=== PATIENT | male | born 1950 | race African-American/Black ===

== ENCOUNTER 2021-04-08 06:27 | Emergency (ER) | payer MEDICARE, OTHER ==
[~2021-04-08] VITALS: Ht 182.9 cm; Wt 110.0 kg
[2021-04-08 08:09] LABS: HEMATOCRIT. 39.7 % (42.0-52.0); HEMOGLOBIN. 13.2 g/dL (14.0-18.0); MEAN CORPUSCULAR HEMOGLOBIN 28.2 pg (28.0-32.0); MEAN CORPUSCULAR VOLUME 84.7 fL (80.0-94.0); MEAN PLATELET VOLUME 6.4 fl (7.4-10.4); PLATELET 362 x1000/uL (130-400); RED BLOOD CELL COUNT 4.69 mill/uL (4.7-6.1); RED CELL DISTRIBUTION WIDTH 14.7 % (11.6-14.6)
[2021-04-08 08:16] LABS: CHLORIDE 105 mEq/L (98-107)
[2021-04-08 08:42] LABS: PLATELET ESTIMATE NORMAL
[2021-04-08 11:22] LABS: CLARITY URINE CLEAR (CLEAR); COLOR URINE YELLOW (YELLOW); KETONES URINE NEGATIVE (NEGATIVE); LEUKOCYTE ESTERASE URINE NEGATIVE (NEGATIVE); NITRITE URINE NEGATIVE (NEGATIVE); OCCULT BLOOD URINE NEGATIVE (NEGATIVE); PH URINE 6.5 (4.5-8.0); PROTEIN URINE NEGATIVE (NEGATIVE); SPECIFIC GRAVITY URINE 1.009 (1.005-1.030); UROBILINOGEN URINE 0.2 E.U./dL (0.2-1.0)
[2021-04-08] MEDS ORDERED: CLONIDINE 0.1MG TABLET PO PRN (12:45)
[2021-04-08] MEDS ORDERED: GUAIFENESIN 200MG/10ML SUGAR FREE UDC PO PRN (12:45)
[2021-04-08] MEDS ORDERED: DOCUSATE SODIUM 100MG CAPSULE PO PRN (12:45)
[2021-04-08] MEDS ORDERED: IPRATROPIUM/ALBUTEROL 0.5-3(2.5)MG/3ML NEB NEB PRN (12:45)
[2021-04-08] MEDS ORDERED: ACETAMINOPHEN 325MG TABLET PO PRN (12:45)
[2021-04-08] MEDS ORDERED: ONDANSETRON HCL 4MG/2ML INJ IV PRN (12:45)
[2021-04-08] MEDS ORDERED: HYDRALAZINE 20MG/ML VIAL IV PRN (12:45)
[2021-04-08] MEDS ORDERED: ENOXAPARIN 30MG/0.3ML SYR SUBCUT SCH (13:00)
[2021-04-08 13:40] VITALS: BP 170/101
== END 2021-04-08 14:04 | disposition left against medical advice (07) ==
LOC: ER 06:27 → CANRESERV 12:13 → ENRESERV 12:13 → CANBEDREQ 13:51 → ER 14:04
DX: R55 Syncope and collapse (principal); Z20.822 Contact with and (suspected) exposure to COVID-19
CPT/HCPCS: 36415; 70450; 71045; 80053; 81003; 83880; 84484; 85025; 87426; 93005; 96374; 96375; 99285; J0360; J2405

== ENCOUNTER 2021-12-06 11:16 | Inpatient (IN) | payer MEDICARE, OTHER ==
[~2021-12-06] VITALS: Ht 177.8 cm; Wt 92.6 kg
[2021-12-06] MEDS ORDERED: SODIUM CHLORIDE 0.9% 1,000 ML IV ONE (12:30)
[2021-12-06 12:52] LABS: BASOPHILS % 0.4 % (0.0-2.0); CHLORIDE 105 mEq/L (98-107); EOSINOPHILS % 1.9 % (0.0-5.0); HEMATOCRIT. 38.3 % (42.0-52.0); LYMPHOCYTES % 8.8 % (20.0-50.0); MEAN CORPUSCULAR HEMOGLOBIN 29.4 pg (28.0-32.0); MEAN CORPUSCULAR VOLUME 86.8 fL (80.0-94.0); MEAN PLATELET VOLUME 6.5 fl (7.4-10.4); MONOCYTES % 8.3 % (2.0-8.0); NEUTROPHILS % 80.6 % (40.0-76.0); PLATELET 375 x1000/uL (130-400); RED BLOOD CELL COUNT 4.41 mill/uL (4.7-6.1); RED CELL DISTRIBUTION WIDTH 13.7 % (11.6-14.6)
[2021-12-06] MEDS ORDERED: ASPIRIN 325MG EC TABLET PO ONE (14:45)
[2021-12-06] MEDS ORDERED: ONDANSETRON HCL 4MG/2ML INJ IV PRN (17:00)
[2021-12-06] MEDS ORDERED: ACETAMINOPHEN 325MG TABLET PO PRN (17:00)
[2021-12-06] MEDS: LOSARTAN POTASSIUM 100 MG TABLET PO SCH (17:05)
[2021-12-06 17:07] VITALS: BP 200/115
[2021-12-06 17:10] VITALS: BP 200/115
[2021-12-06 20:00] VITALS: BP 174/107
[2021-12-06] MEDS ORDERED: PNEUMOCOCCAL 23-VAL P-SAC VAC 0.5 ML IM ONE (21:30)
[2021-12-06] MEDS ORDERED: INFLUENZA VACCINE 05/PF 0.5 ML SYRINGE IM ONE (21:30)
[2021-12-06] MEDS: CLONIDINE 0.1MG TABLET PO PRN (23:23)
[2021-12-07] VITALS: BP 130/98
[2021-12-07 04:00] VITALS: BP_SYST 177
[2021-12-07] MEDS: CLONIDINE 0.1MG TABLET PO PRN ×3 (06:16→19:06)
[2021-12-07 08:00] VITALS: BP 163/93
[2021-12-07] MEDS: LOSARTAN POTASSIUM 100 MG TABLET PO SCH (08:58)
[2021-12-07 12:00] VITALS: BP_SYST 163; BP_SYST 164; BP_SYST 167; BP_DIAS 100; BP_DIAS 98; BP_DIAS 99
[2021-12-07] MEDS: AMLODIPINE 10MG TABLET PO SCH (14:37)
[2021-12-07 16:00] VITALS: BP 166/92
[2021-12-07 16:50] LABS: BASOPHILS % 0.3 % (0.0-2.0); EOSINOPHILS % 4.6 % (0.0-5.0); HEMATOCRIT. 36.6 % (42.0-52.0); HEMOGLOBIN. 12.5 g/dL (14.0-18.0); LYMPHOCYTES % 17.7 % (20.0-50.0); MEAN CORPUSCULAR HEMOGLOBIN 29.4 pg (28.0-32.0); MEAN CORPUSCULAR VOLUME 86.5 fL (80.0-94.0); MEAN PLATELET VOLUME 6.7 fl (7.4-10.4); NEUTROPHILS % 67.4 % (40.0-76.0); PLATELET 357 x1000/uL (130-400); RED BLOOD CELL COUNT 4.24 mill/uL (4.7-6.1); RED CELL DISTRIBUTION WIDTH 14.1 % (11.6-14.6)
[2021-12-07 16:57] LABS: CHLORIDE 100 mEq/L (98-107)
[2021-12-07 17:13] LABS: VITAMIN B12 SERUM 415 pg/mL (211-911)
[2021-12-07] MEDS: ASPIRIN 81MG TABLET PO SCH (19:06)
[2021-12-07 20:00] VITALS: BP_SYST 123; BP_SYST 130; BP_SYST 131; BP_DIAS 82; BP_DIAS 84; BP_DIAS 86
[2021-12-07] MEDS ORDERED: ATORVASTATIN CALCIUM 20MG TABLET PO SCH (21:00)
[2021-12-07] MEDS: ENOXAPARIN 40MG/0.4ML SYR SUBCUT SCH (21:40)
[2021-12-07] MEDS ORDERED: INSULIN GLARGINE 100 UNITS/ML SUBCUT SCH (22:00)
[2021-12-07 22:36] LABS: CLARITY URINE CLEAR (CLEAR); COLOR URINE YELLOW (YELLOW); KETONES URINE NEGATIVE (NEGATIVE); LEUKOCYTE ESTERASE URINE NEGATIVE (NEGATIVE); NITRITE URINE NEGATIVE (NEGATIVE); OCCULT BLOOD URINE NEGATIVE (NEGATIVE); PH URINE 7.5 (4.5-8.0); PROTEIN URINE NEGATIVE (NEGATIVE); SPECIFIC GRAVITY URINE 1.016 (1.005-1.030); UROBILINOGEN URINE 0.2 E.U./dL (0.2-1.0)
[2021-12-07] MEDS ORDERED: DEXTROSE 50% WATER 50ML SYRINGE IV PRN (22:45)
[2021-12-07] MEDS: BLOOD SUGAR DIAGNOSTIC STRIP TEST SCH (22:58)
[2021-12-07] MEDS: INSULIN GLARGINE 100 UNITS/ML SUBCUT SCH (23:05)
[2021-12-07] MEDS: INSULIN LISPRO 100 UNITS/ML SUBCUT SCH (23:05)
[2021-12-08] VITALS: BP 100/54
[2021-12-08 04:00] VITALS: BP 160/91
[2021-12-08] MEDS: BLOOD SUGAR DIAGNOSTIC STRIP TEST SCH ×4 (06:26→21:23)
[2021-12-08] MEDS: CLONIDINE 0.1MG TABLET PO PRN (06:32)
[2021-12-08 08:00] VITALS: BP 159/91
[2021-12-08] MEDS: ASPIRIN 81MG TABLET PO SCH (08:58)
[2021-12-08] MEDS: LOSARTAN POTASSIUM 100 MG TABLET PO SCH (08:58)
[2021-12-08] MEDS: CLOPIDOGREL 75MG TABLET PO SCH (08:58)
[2021-12-08] MEDS: AMLODIPINE 10MG TABLET PO SCH (08:59)
[2021-12-08] MEDS ORDERED: ASPIRIN 81MG TABLET PO SCH (09:00)
[2021-12-08] MEDS: INSULIN LISPRO 100 UNITS/ML SUBCUT SCH ×4 (09:22→21:00)
[2021-12-08] MEDS: INSULIN GLARGINE 100 UNITS/ML SUBCUT SCH ×2 (11:44→21:26)
[2021-12-08 12:00] VITALS: BP 158/86
[2021-12-08 16:00] VITALS: BP_SYST 151; BP_SYST 155; BP_SYST 158; BP_DIAS 88; BP_DIAS 91; BP_DIAS 92
[2021-12-08 20:00] VITALS: BP 152/89
[2021-12-08] MEDS: ENOXAPARIN 40MG/0.4ML SYR SUBCUT SCH (21:23)
[2021-12-08] MEDS: ATORVASTATIN CALCIUM 20MG TABLET PO SCH (21:24)
[2021-12-09] VITALS: BP 164/85
[2021-12-09] MEDS: CLONIDINE 0.1MG TABLET PO PRN (00:30)
[2021-12-09 04:11] VITALS: BP_SYST 152; BP_SYST 154; BP_SYST 165; BP_DIAS 83; BP_DIAS 86; BP_DIAS 89
[2021-12-09] MEDS: BLOOD SUGAR DIAGNOSTIC STRIP TEST SCH ×4 (06:47→21:16)
[2021-12-09] MEDS: INSULIN LISPRO 100 UNITS/ML SUBCUT SCH ×4 (07:50→21:00)
[2021-12-09 08:00] VITALS: BP_SYST 152; BP_SYST 155; BP_SYST 158; BP_DIAS 83; BP_DIAS 84; BP_DIAS 85
[2021-12-09] MEDS: AMLODIPINE 10MG TABLET PO SCH (09:43)
[2021-12-09] MEDS: ASPIRIN 81MG TABLET PO SCH (09:43)
[2021-12-09] MEDS: INSULIN GLARGINE 100 UNITS/ML SUBCUT SCH ×2 (09:50→21:49)
[2021-12-09] MEDS: CLOPIDOGREL 75MG TABLET PO SCH (10:06)
[2021-12-09] MEDS: LOSARTAN POTASSIUM 100 MG TABLET PO SCH (10:06)
[2021-12-09 12:00] VITALS: BP 145/87
[2021-12-09 16:00] VITALS: BP 161/82
[2021-12-09 20:00] VITALS: BP 159/89
[2021-12-09] MEDS: ATORVASTATIN CALCIUM 20MG TABLET PO SCH (21:06)
[2021-12-09] MEDS: ENOXAPARIN 40MG/0.4ML SYR SUBCUT SCH (21:13)
[2021-12-10] VITALS: BP 159/89
[2021-12-10 04:00] VITALS: BP 154/89
[2021-12-10] MEDS: BLOOD SUGAR DIAGNOSTIC STRIP TEST SCH ×3 (07:42→17:20)
[2021-12-10] MEDS: INSULIN LISPRO 100 UNITS/ML SUBCUT SCH ×3 (07:42→18:49)
[2021-12-10 08:00] VITALS: BP 179/84
[2021-12-10] MEDS: ASPIRIN 81MG TABLET PO SCH (09:41)
[2021-12-10] MEDS: AMLODIPINE 10MG TABLET PO SCH (09:41)
[2021-12-10] MEDS: CLOPIDOGREL 75MG TABLET PO SCH (09:41)
[2021-12-10] MEDS: LOSARTAN POTASSIUM 100 MG TABLET PO SCH (09:41)
[2021-12-10] MEDS: INSULIN GLARGINE 100 UNITS/ML SUBCUT SCH (09:42)
[2021-12-10 12:00] VITALS: BP 175/99
[2021-12-10] MEDS: CLONIDINE 0.1MG TABLET PO PRN (13:00)
[2021-12-10 16:00] VITALS: BP 129/87
[2021-12-10 18:23] VITALS: BP 129/87
== END 2021-12-10 18:55 | DRG 65 ==
LOC: ER 13:02 → 6WST 14:44 → EDBEDREQ 15:02 → ENRESERV 15:12 → 6WST 12-09 01:05
PROVIDERS: ADMIT Internal Medicine; ATTEND Internal Medicine
PROC: 4A00X4Z Measurement of Central Nervous Electrical Activity, External Approach (ICD-10-PCS; principal; 2021-12-08)
DX: I63.81 Other cerebral infarction due to occlusion or stenosis of small artery (principal); E44.1 Mild protein-calorie malnutrition; I16.1 Hypertensive emergency; E11.65 Type 2 diabetes mellitus with hyperglycemia; I10 Essential (primary) hypertension; Z68.29 Body mass index [BMI] 29.0-29.9, adult; R61 Generalized hyperhidrosis
CPT/HCPCS: 36415; 70551; 71045; 80048; 80053; 80061; 81003; 82607; 82962; 83036; 83735; 83880; 84443; 84484; 85025; 90686; 90732; 93306; 93880; 95816; 97116; 97162; 97166; 97530; 99285; J1650; J1815; J2405; J7030

== ENCOUNTER 2021-12-22 00:20 | Inpatient (IN) | payer MEDICARE, OTHER ==
[~2021-12-22] VITALS: Ht 177.8 cm; Wt 99.8 kg
[2021-12-22] VITALS (7 sets, daily range): BP systolic 150–159; BP diastolic 74–91
[2021-12-22] MEDS ORDERED: DEXT 5%/0.45% NACL KCL 20MEQ/L 1,000 ML IV SCH (04:00)
[2021-12-22] MEDS ORDERED: LORAZEPAM 2MG/ML CPJ IV PRN (08:15)
[2021-12-22] MEDS: HALOPERIDOL LACTATE 5MG/ML VIAL IM PRN (08:40)
[2021-12-22 11:19] LABS: BASOPHILS % 0.2 % (0.0-2.0); EOSINOPHILS % 0.9 % (0.0-5.0); HEMOGLOBIN. 12.8 g/dL (14.0-18.0); MEAN CORPUSCULAR HEMOGLOBIN 29.9 pg (28.0-32.0); MEAN CORPUSCULAR VOLUME 88.8 fL (80.0-94.0); MEAN PLATELET VOLUME 6.6 fl (7.4-10.4); MONOCYTES % 8.4 % (2.0-8.0); NEUTROPHILS % 81.5 % (40.0-76.0); PLATELET 460 x1000/uL (130-400); RED BLOOD CELL COUNT 4.28 mill/uL (4.7-6.1); RED CELL DISTRIBUTION WIDTH 14.4 % (11.6-14.6)
[2021-12-22 11:33] LABS: CHLORIDE 106 mEq/L (98-107)
[2021-12-22] MEDS: ASPIRIN 81MG TABLET PO SCH (16:09)
[2021-12-22] MEDS: ENOXAPARIN 40MG/0.4ML SYR SUBCUT SCH (16:10)
[2021-12-22] MEDS ORDERED: DEXTROSE 50% WATER 50ML SYRINGE IV PRN (17:30)
[2021-12-22] MEDS: BLOOD SUGAR DIAGNOSTIC STRIP TEST SCH ×2 (17:30→20:23)
[2021-12-22] MEDS: INSULIN LISPRO 100 UNITS/ML SUBCUT SCH ×2 (17:40→20:23)
[2021-12-22] MEDS: ATORVASTATIN CALCIUM 40MG TABLET PO SCH (20:22)
[2021-12-23] VITALS: BP 143/80
[2021-12-23 04:00] VITALS: BP 152/89
[2021-12-23 05:50] LABS: CLARITY URINE CLEAR (CLEAR); COLOR URINE YELLOW (YELLOW); KETONES URINE 2+ (NEGATIVE); LEUKOCYTE ESTERASE URINE NEGATIVE (NEGATIVE); NITRITE URINE NEGATIVE (NEGATIVE); OCCULT BLOOD URINE NEGATIVE (NEGATIVE); PH URINE 5.5 (4.5-8.0); PROTEIN URINE TRACE (NEGATIVE); SPECIFIC GRAVITY URINE 1.027 (1.005-1.030)
[2021-12-23] MEDS: BLOOD SUGAR DIAGNOSTIC STRIP TEST SCH ×4 (06:17→20:59)
[2021-12-23] MEDS: INSULIN LISPRO 100 UNITS/ML SUBCUT SCH ×4 (06:17→20:59)
[2021-12-23 06:52] LABS: BASOPHILS % 0.4 % (0.0-2.0); EOSINOPHILS % 3.5 % (0.0-5.0); HEMATOCRIT. 37.3 % (42.0-52.0); HEMOGLOBIN. 12.6 g/dL (14.0-18.0); LYMPHOCYTES % 11.3 % (20.0-50.0); MEAN CORPUSCULAR HEMOGLOBIN 29.6 pg (28.0-32.0); MEAN CORPUSCULAR VOLUME 87.7 fL (80.0-94.0); MEAN PLATELET VOLUME 6.6 fl (7.4-10.4); NEUTROPHILS % 75.8 % (40.0-76.0); PLATELET 416 x1000/uL (130-400); RED BLOOD CELL COUNT 4.26 mill/uL (4.7-6.1)
[2021-12-23 07:01] LABS: CHLORIDE 110 mEq/L (98-107)
[2021-12-23 08:00] VITALS: BP 164/89
[2021-12-23] MEDS: CLOPIDOGREL 75MG TABLET PO SCH (09:09)
[2021-12-23] MEDS: ASPIRIN 81MG TABLET PO SCH (09:09)
[2021-12-23 12:00] VITALS: BP 139/70
[2021-12-23] MEDS: ENOXAPARIN 40MG/0.4ML SYR SUBCUT SCH (14:42)
[2021-12-23 16:00] VITALS: BP 135/74
[2021-12-23] MEDS: HALOPERIDOL LACTATE 5MG/ML VIAL IM PRN (20:58)
[2021-12-23] MEDS: ATORVASTATIN CALCIUM 40MG TABLET PO SCH (20:59)
[2021-12-23] MEDS: RISPERIDONE 0.5MG TABLET PO SCH (20:59)
[2021-12-23 21:00] VITALS: BP 131/87
[2021-12-24] VITALS: BP 140/79
[2021-12-24] MEDS: LORAZEPAM 2MG/ML CPJ IM PRN ×2 (00:57→16:42)
[2021-12-24] MEDS: HALOPERIDOL LACTATE 5MG/ML VIAL IM PRN ×2 (05:04→18:50)
[2021-12-24] MEDS: BLOOD SUGAR DIAGNOSTIC STRIP TEST SCH ×4 (06:53→21:14)
[2021-12-24] MEDS: INSULIN LISPRO 100 UNITS/ML SUBCUT SCH ×4 (06:53→21:00)
[2021-12-24 08:00] VITALS: BP 171/105
[2021-12-24] MEDS: ASPIRIN 81MG TABLET PO SCH (08:41)
[2021-12-24] MEDS: RISPERIDONE 0.5MG TABLET PO SCH ×2 (08:42→16:42)
[2021-12-24] MEDS: CLOPIDOGREL 75MG TABLET PO SCH (08:42)
[2021-12-24] MEDS: AMLODIPINE 10MG TABLET PO SCH (08:42)
[2021-12-24] MEDS ORDERED: MIDAZOLAM HCL 2 MG/2 ML VIAL ONE (09:03)
[2021-12-24] MEDS ORDERED: FENTANYL CITRATE/PF 50MCG/ML 2ML VIAL ONE (09:03)
[2021-12-24] MEDS ORDERED: TETRACAINE/BENZOCAINE/BUTAMBEN 20 GM SPRAY MM ONE (09:07)
[2021-12-24] MEDS ORDERED: LIDOCAINE HCL 2% JELLY 5ML ONE (09:08)
[2021-12-24] MEDS ORDERED: APIXABAN 5 MG TABLET PO SCH (10:00)
[2021-12-24 12:00] VITALS: BP 147/85
[2021-12-24] MEDS: APIXABAN 5 MG TABLET PO SCH ×2 (13:04→22:10)
[2021-12-24 16:00] VITALS: BP 136/74
[2021-12-24 20:00] VITALS: BP 135/83
[2021-12-24] MEDS: ATORVASTATIN CALCIUM 40MG TABLET PO SCH (21:14)
[2021-12-25] VITALS (7 sets, daily range): BP systolic 101–149; BP diastolic 60–84
[2021-12-25] MEDS: BLOOD SUGAR DIAGNOSTIC STRIP TEST SCH ×4 (06:10→21:26)
[2021-12-25] MEDS: INSULIN LISPRO 100 UNITS/ML SUBCUT SCH ×4 (06:10→21:00)
[2021-12-25] MEDS: ASPIRIN 81MG TABLET PO SCH (08:48)
[2021-12-25] MEDS: APIXABAN 5 MG TABLET PO SCH (08:49)
[2021-12-25] MEDS: AMLODIPINE 10MG TABLET PO SCH (08:49)
[2021-12-25] MEDS: RISPERIDONE 0.5MG TABLET PO SCH ×2 (08:49→16:58)
[2021-12-25] MEDS ORDERED: LACTULOSE 20G/30ML UDC PO NR (09:15)
[2021-12-25] MEDS: DEXT 5%/0.45% NACL 1000ML 1,000 ML IV SCH (17:44)
[2021-12-25] MEDS ORDERED: ENOXAPARIN 100MG/ML SYR SUBCUT SCH (18:00)
[2021-12-25 18:29] LABS: HEMATOCRIT 36.6 % (42.0-52.0); HEMOGLOBIN 11.8 g/dL (14.0-18.0); MEAN CORPUSCULAR HEMOGLOBIN 28.6 pg (28.0-32.0); MEAN CORPUSCULAR VOLUME 88.7 fL (80.0-94.0); PLATELET 429 x1000/uL (130-400); RED BLOOD CELL COUNT 4.13 mill/uL (4.7-6.1); RED CELL DISTRIBUTION WIDTH 14.2 % (11.6-14.6)
[2021-12-25 18:42] LABS: INR 1.2; PROTHROMBIN TIME 13.2 sec (9.6-11.0)
[2021-12-25 18:47] LABS: CHLORIDE 104 mEq/L (98-107)
[2021-12-25 18:52] LABS: TOTAL IRON BINDING CAPACITY 237 ug/dL (250-450)
[2021-12-25 19:11] LABS: FERRITIN 356 ng/mL (22-322)
[2021-12-25 19:19] LABS: VITAMIN B12 SERUM 632 pg/mL (211-911)
[2021-12-25] MEDS: ATORVASTATIN CALCIUM 40MG TABLET PO SCH (21:00)
[2021-12-25] MEDS: PANTOPRAZOLE SODIUM 40 MG/VIAL IV SCH (22:02)
[2021-12-26] VITALS: BP 141/71
[2021-12-26] MEDS: LORAZEPAM 2MG/ML CPJ IM PRN (02:59)
[2021-12-26 04:00] VITALS: BP 122/76
[2021-12-26] MEDS: DEXT 5%/0.45% NACL 1000ML 1,000 ML IV SCH ×2 (06:01→18:28)
[2021-12-26] MEDS: BLOOD SUGAR DIAGNOSTIC STRIP TEST SCH ×4 (06:09→21:51)
[2021-12-26] MEDS: INSULIN LISPRO 100 UNITS/ML SUBCUT SCH ×4 (06:14→21:50)
[2021-12-26 08:00] VITALS: BP 117/70
[2021-12-26] MEDS: ASPIRIN 81MG TABLET PO SCH (08:27)
[2021-12-26] MEDS: AMLODIPINE 10MG TABLET PO SCH (08:27)
[2021-12-26] MEDS: PANTOPRAZOLE SODIUM 40 MG/VIAL IV SCH ×2 (08:27→21:50)
[2021-12-26] MEDS: RISPERIDONE 0.5MG TABLET PO SCH ×2 (08:27→18:24)
[2021-12-26 09:33] LABS: CHLORIDE 106 mEq/L (98-107)
[2021-12-26] MEDS: ENOXAPARIN 100MG/ML SYR SUBCUT SCH ×2 (11:37→21:44)
[2021-12-26 12:00] VITALS: BP 104/72
[2021-12-26 16:00] VITALS: BP 128/80
[2021-12-26 16:26] LABS: BG BASE EXCESS -4.4 mmol/L (-2.0-2.0); BG CARBOXYHEMOGLOBIN 0.3 % (0.5-1.5); BG DEOXYHEMOGLOBIN 5.5 % (0.0-5.0); BG METHEMOGLOBIN 0.2 % (0.0-1.5); BG OXYGEN SATURATION 94.5 % (92.0-98.5); BG PCO2 34.4 mmHg (35.0-45.0); BG PH 7.382 (7.350-7.450); BG PO2 73.2 mmHg (75.0-100.0); BG SAMPLE SITE RIGHT BRACHIAL; BG TOTAL HEMOGLOBIN 12.3 g/dL (12.0-18.0); BG VENT MODE ROOM AIR
[2021-12-26 17:54] LABS: HEMATOCRIT. 34.8 % (42.0-52.0); HEMOGLOBIN. 11.4 g/dL (14.0-18.0); MEAN CORPUSCULAR HEMOGLOBIN 28.9 pg (28.0-32.0); MEAN CORPUSCULAR VOLUME 88.5 fL (80.0-94.0); PLATELET 465 x1000/uL (130-400); RED BLOOD CELL COUNT 3.93 mill/uL (4.7-6.1)
[2021-12-26 18:04] LABS: INR 1.2; PROTHROMBIN TIME 12.9 sec (9.6-11.0)
[2021-12-26 18:13] LABS: TOTAL IRON BINDING CAPACITY 210 ug/dL (250-450)
[2021-12-26 18:37] LABS: FERRITIN 551 ng/mL (22-322)
[2021-12-26 18:41] LABS: VITAMIN B12 SERUM 814 pg/mL (211-911)
[2021-12-26 20:00] VITALS: BP 126/66
[2021-12-26 20:59] LABS: PLATELET ESTIMATE INCREASED
[2021-12-26] MEDS: ATORVASTATIN CALCIUM 40MG TABLET PO SCH (21:50)
[2021-12-27] VITALS (7 sets, daily range): BP systolic 121–168; BP diastolic 71–89
[2021-12-27] MEDS: IPRATROPIUM/ALBUTEROL 0.5-3(2.5)MG/3ML NEB HHN PRN ×3 (05:22→16:27)
[2021-12-27] MEDS: INSULIN LISPRO 100 UNITS/ML SUBCUT SCH ×4 (07:03→22:17)
[2021-12-27] MEDS: DEXT 5%/0.45% NACL 1000ML 1,000 ML IV SCH ×2 (07:03→22:12)
[2021-12-27] MEDS: BLOOD SUGAR DIAGNOSTIC STRIP TEST SCH ×4 (07:03→21:00)
[2021-12-27] MEDS: PANTOPRAZOLE SODIUM 40 MG/VIAL IV SCH ×2 (11:15→22:16)
[2021-12-27] MEDS: ASPIRIN 81MG TABLET PO SCH (11:15)
[2021-12-27] MEDS: RISPERIDONE 0.5MG TABLET PO SCH ×2 (11:16→17:59)
[2021-12-27] MEDS: AMLODIPINE 10MG TABLET PO SCH (11:16)
[2021-12-27] MEDS: ENOXAPARIN 100MG/ML SYR SUBCUT SCH ×2 (11:18→22:10)
[2021-12-27] MEDS: METRONIDAZOLE 500MG TABLET PO SCH ×2 (14:57→22:09)
[2021-12-27] MEDS: CEFEPIME 2,000 MG in DEXT 5% WATER 100 ML IV SCH ×2 (17:59→22:11)
[2021-12-27 22:01] LABS: HEMATOCRIT. 31.2 % (42.0-52.0); HEMOGLOBIN. 10.4 g/dL (14.0-18.0); MEAN CORPUSCULAR HEMOGLOBIN 29.2 pg (28.0-32.0); MEAN CORPUSCULAR VOLUME 87.2 fL (80.0-94.0); MEAN PLATELET VOLUME 7.1 fl (7.4-10.4); PLATELET 448 x1000/uL (130-400); RED BLOOD CELL COUNT 3.57 mill/uL (4.7-6.1); RED CELL DISTRIBUTION WIDTH 13.9 % (11.6-14.6)
[2021-12-27] MEDS: ATORVASTATIN CALCIUM 40MG TABLET PO SCH (22:10)
[2021-12-27 22:41] LABS: PLATELET ESTIMATE INCREASED
[2021-12-28] VITALS: BP 135/78
[2021-12-28] MEDS: ACETAMINOPHEN 650MG/20.3ML UDC PO PRN ×2 (00:57→22:09)
[2021-12-28 04:00] VITALS: BP 122/71
[2021-12-28] MEDS: BLOOD SUGAR DIAGNOSTIC STRIP TEST SCH ×4 (06:44→21:00)
[2021-12-28] MEDS: METRONIDAZOLE 500MG TABLET PO SCH ×3 (06:54→22:10)
[2021-12-28] MEDS: INSULIN LISPRO 100 UNITS/ML SUBCUT SCH ×4 (06:56→22:08)
[2021-12-28 07:00] LABS: HEMATOCRIT. 31.4 % (42.0-52.0); HEMOGLOBIN. 10.4 g/dL (14.0-18.0); MEAN CORPUSCULAR VOLUME 88.2 fL (80.0-94.0); MEAN PLATELET VOLUME 6.8 fl (7.4-10.4); PLATELET 465 x1000/uL (130-400); RED BLOOD CELL COUNT 3.57 mill/uL (4.7-6.1); RED CELL DISTRIBUTION WIDTH 14.1 % (11.6-14.6)
[2021-12-28 07:58] LABS: CHLORIDE 111 mEq/L (98-107)
[2021-12-28 08:00] VITALS: BP 132/72
[2021-12-28] MEDS: ENOXAPARIN 100MG/ML SYR SUBCUT SCH ×2 (08:02→21:00)
[2021-12-28] MEDS: PANTOPRAZOLE SODIUM 40 MG/VIAL IV SCH ×2 (08:59→22:11)
[2021-12-28] MEDS: ASPIRIN 81MG TABLET PO SCH (09:00)
[2021-12-28] MEDS: AMLODIPINE 10MG TABLET PO SCH (09:02)
[2021-12-28] MEDS: RISPERIDONE 0.5MG TABLET PO SCH ×2 (09:02→17:35)
[2021-12-28 10:08] LABS: HEMATOCRIT 33.6 % (42.0-52.0)
[2021-12-28 10:35] LABS: PLATELET ESTIMATE INCREASED
[2021-12-28 12:18] VITALS: BP 124/68
[2021-12-28] MEDS: SUCRALFATE 1 G/10 ML UDC PO SCH ×3 (13:42→22:09)
[2021-12-28] MEDS: DEXT 5%/0.45% NACL 1000ML 1,000 ML IV SCH (13:45)
[2021-12-28 16:25] VITALS: BP 111/61
[2021-12-28] MEDS: CEFEPIME 2,000 MG in DEXT 5% WATER 100 ML IV SCH (17:35)
[2021-12-28 20:00] VITALS: BP 137/45
[2021-12-28] MEDS: ATORVASTATIN CALCIUM 40MG TABLET PO SCH (22:09)
[2021-12-29] VITALS: BP 129/51
[2021-12-29 04:00] VITALS: BP 111/25
[2021-12-29] MEDS: DEXT 5%/0.45% NACL 1000ML 1,000 ML IV SCH ×2 (06:52→12:13)
[2021-12-29] MEDS: CEFEPIME 2,000 MG in DEXT 5% WATER 100 ML IV SCH ×2 (06:53→17:00)
[2021-12-29] MEDS: METRONIDAZOLE 500MG TABLET PO SCH ×3 (06:53→21:30)
[2021-12-29] MEDS: SUCRALFATE 1 G/10 ML UDC PO SCH ×4 (06:56→21:30)
[2021-12-29] MEDS: INSULIN LISPRO 100 UNITS/ML SUBCUT SCH ×4 (06:57→21:32)
[2021-12-29] MEDS: BLOOD SUGAR DIAGNOSTIC STRIP TEST SCH ×4 (06:57→21:11)
[2021-12-29 07:23] LABS: HEMOGLOBIN. 9.9 g/dL (14.0-18.0); MEAN CORPUSCULAR HEMOGLOBIN 29.7 pg (28.0-32.0); MEAN CORPUSCULAR VOLUME 87.5 fL (80.0-94.0); PLATELET 486 x1000/uL (130-400); RED BLOOD CELL COUNT 3.32 mill/uL (4.7-6.1); RED CELL DISTRIBUTION WIDTH 14.2 % (11.6-14.6)
[2021-12-29 07:54] LABS: INR 1.1; PROTHROMBIN TIME 12.1 sec (9.6-11.0)
[2021-12-29 08:00] VITALS: BP 110/65
[2021-12-29] MEDS: ASPIRIN 81MG TABLET PO SCH (08:47)
[2021-12-29] MEDS: ENOXAPARIN 100MG/ML SYR SUBCUT SCH ×2 (08:47→21:31)
[2021-12-29] MEDS: PANTOPRAZOLE SODIUM 40 MG/VIAL IV SCH ×2 (08:47→21:30)
[2021-12-29] MEDS: RISPERIDONE 0.5MG TABLET PO SCH ×2 (08:47→17:01)
[2021-12-29] MEDS: AMLODIPINE 10MG TABLET PO SCH (08:51)
[2021-12-29 10:17] LABS: CHLORIDE 109 mEq/L (98-107)
[2021-12-29 12:00] VITALS: BP 134/53
[2021-12-29 15:55] VITALS: BP 118/56
[2021-12-29 16:53] LABS: PLATELET ESTIMATE INCREASED
[2021-12-29 20:00] VITALS: BP 124/76
[2021-12-29] MEDS: ATORVASTATIN CALCIUM 40MG TABLET PO SCH (21:30)
[2021-12-30] VITALS: BP 132/66
[2021-12-30] MEDS: DEXT 5%/0.45% NACL 1000ML 1,000 ML IV SCH ×2 (00:37→15:44)
[2021-12-30 04:00] VITALS: BP 126/73
[2021-12-30] MEDS: CEFEPIME 2,000 MG in DEXT 5% WATER 100 ML IV SCH ×2 (05:06→16:00)
[2021-12-30] MEDS: BLOOD SUGAR DIAGNOSTIC STRIP TEST SCH ×4 (06:26→21:16)
[2021-12-30] MEDS: INSULIN LISPRO 100 UNITS/ML SUBCUT SCH ×4 (06:28→21:20)
[2021-12-30] MEDS: METRONIDAZOLE 500MG TABLET PO SCH ×3 (06:29→20:59)
[2021-12-30] MEDS: SUCRALFATE 1 G/10 ML UDC PO SCH ×4 (06:29→20:58)
[2021-12-30 08:00] VITALS: BP 137/82
[2021-12-30 08:26] LABS: HEMATOCRIT. 26.9 % (42.0-52.0); MEAN CORPUSCULAR VOLUME 87.1 fL (80.0-94.0); MEAN PLATELET VOLUME 7.1 fl (7.4-10.4); PLATELET 497 x1000/uL (130-400); RED BLOOD CELL COUNT 3.09 mill/uL (4.7-6.1); RED CELL DISTRIBUTION WIDTH 14.2 % (11.6-14.6)
[2021-12-30] MEDS: RISPERIDONE 0.5MG TABLET PO SCH ×2 (08:51→16:05)
[2021-12-30] MEDS: PANTOPRAZOLE SODIUM 40 MG/VIAL IV SCH ×2 (08:51→20:59)
[2021-12-30] MEDS: AMLODIPINE 10MG TABLET PO SCH (08:51)
[2021-12-30] MEDS: ASPIRIN 81MG TABLET PO SCH (08:51)
[2021-12-30] MEDS: ENOXAPARIN 100MG/ML SYR SUBCUT SCH ×2 (08:52→20:58)
[2021-12-30 12:00] VITALS: BP 140/53
[2021-12-30 14:16] LABS: PLATELET ESTIMATE INCREASED
[2021-12-30 16:00] VITALS: BP 155/55
[2021-12-30 17:09] LABS: CHLORIDE 109 mEq/L (98-107)
[2021-12-30] MEDS ORDERED: LACTULOSE 20G/30ML UDC PO NR (18:00)
[2021-12-30 20:07] VITALS: BP 165/68
[2021-12-30] MEDS: ATORVASTATIN CALCIUM 40MG TABLET PO SCH (20:58)
[2021-12-30] MEDS ORDERED: BISACODYL 10MG SUPP PR NR (21:00)
[2021-12-31 00:46] VITALS: BP 146/79
[2021-12-31 04:00] VITALS: BP 151/89
[2021-12-31] MEDS: CEFEPIME 2,000 MG in DEXT 5% WATER 100 ML IV SCH ×2 (04:32→16:31)
[2021-12-31] MEDS: METRONIDAZOLE 500MG TABLET PO SCH ×3 (04:47→23:01)
[2021-12-31] MEDS: SUCRALFATE 1 G/10 ML UDC PO SCH ×4 (04:47→23:00)
[2021-12-31] MEDS: DEXT 5%/0.45% NACL 1000ML 1,000 ML IV SCH ×2 (04:47→16:51)
[2021-12-31] MEDS: BLOOD SUGAR DIAGNOSTIC STRIP TEST SCH ×4 (06:39→21:00)
[2021-12-31] MEDS: INSULIN LISPRO 100 UNITS/ML SUBCUT SCH ×4 (06:39→21:00)
[2021-12-31 07:46] LABS: BASOPHILS % 0.2 % (0.0-2.0); EOSINOPHILS % 2.8 % (0.0-5.0); HEMATOCRIT. 25.3 % (42.0-52.0); HEMOGLOBIN. 8.5 g/dL (14.0-18.0); MEAN CORPUSCULAR HEMOGLOBIN 29.7 pg (28.0-32.0); MEAN CORPUSCULAR VOLUME 87.9 fL (80.0-94.0); MEAN PLATELET VOLUME 6.9 fl (7.4-10.4); MONOCYTES % 11.8 % (2.0-8.0); NEUTROPHILS % 76.2 % (40.0-76.0); PLATELET 522 x1000/uL (130-400); RED BLOOD CELL COUNT 2.88 mill/uL (4.7-6.1); RED CELL DISTRIBUTION WIDTH 14.4 % (11.6-14.6)
[2021-12-31 08:00] VITALS: BP 125/57
[2021-12-31 08:12] LABS: CHLORIDE 109 mEq/L (98-107)
[2021-12-31] MEDS ORDERED: APIXABAN 5 MG TABLET PO SCH (09:00)
[2021-12-31] MEDS: AMLODIPINE 10MG TABLET PO SCH (09:00)
[2021-12-31] MEDS: ENOXAPARIN 100MG/ML SYR SUBCUT SCH ×2 (09:00→23:00)
[2021-12-31] MEDS: ASPIRIN 81MG TABLET PO SCH (09:00)
[2021-12-31] MEDS: RISPERIDONE 0.5MG TABLET PO SCH ×2 (09:00→16:32)
[2021-12-31] MEDS: PANTOPRAZOLE SODIUM 40 MG/VIAL IV SCH ×2 (09:10→23:01)
[2021-12-31 12:00] VITALS: BP 141/77
[2021-12-31] MEDS: ACETAMINOPHEN 650MG/20.3ML UDC PO PRN (12:34)
[2021-12-31 16:00] VITALS: BP 153/83
[2021-12-31 20:00] VITALS: BP 145/69
[2021-12-31] MEDS: ATORVASTATIN CALCIUM 40MG TABLET PO SCH (23:01)
[2022-01-01] VITALS: BP 152/73
[2022-01-01 04:00] VITALS: BP 145/68
[2022-01-01] MEDS: CEFEPIME 2,000 MG in DEXT 5% WATER 100 ML IV SCH ×2 (05:26→16:34)
[2022-01-01] MEDS: METRONIDAZOLE 500MG TABLET PO SCH ×3 (05:27→21:57)
[2022-01-01] MEDS: SUCRALFATE 1 G/10 ML UDC PO SCH ×4 (05:27→21:57)
[2022-01-01] MEDS: BLOOD SUGAR DIAGNOSTIC STRIP TEST SCH ×4 (06:24→20:45)
[2022-01-01] MEDS: INSULIN LISPRO 100 UNITS/ML SUBCUT SCH ×4 (06:24→22:03)
[2022-01-01 06:50] LABS: BASOPHILS % 0.2 % (0.0-2.0); EOSINOPHILS % 5.4 % (0.0-5.0); HEMATOCRIT. 26.2 % (42.0-52.0); HEMOGLOBIN. 8.8 g/dL (14.0-18.0); LYMPHOCYTES % 11.1 % (20.0-50.0); MEAN CORPUSCULAR HEMOGLOBIN 29.6 pg (28.0-32.0); MEAN CORPUSCULAR VOLUME 88.5 fL (80.0-94.0); MONOCYTES % 12.4 % (2.0-8.0); NEUTROPHILS % 70.9 % (40.0-76.0); PLATELET 539 x1000/uL (130-400); RED BLOOD CELL COUNT 2.97 mill/uL (4.7-6.1); RED CELL DISTRIBUTION WIDTH 14.4 % (11.6-14.6)
[2022-01-01 06:51] LABS: INR 1.2; PROTHROMBIN TIME 12.4 sec (9.6-11.0)
[2022-01-01 08:00] VITALS: BP 146/58
[2022-01-01] MEDS: RISPERIDONE 0.5MG TABLET PO SCH ×2 (08:07→16:34)
[2022-01-01] MEDS: AMLODIPINE 10MG TABLET PO SCH (08:07)
[2022-01-01] MEDS: ENOXAPARIN 100MG/ML SYR SUBCUT SCH ×2 (08:07→08:25)
[2022-01-01] MEDS: PANTOPRAZOLE SODIUM 40 MG/VIAL IV SCH ×2 (08:07→21:57)
[2022-01-01] MEDS: DEXT 5%/0.45% NACL 1000ML 1,000 ML IV SCH ×2 (08:08→21:05)
[2022-01-01 10:25] LABS: CHLORIDE 110 mEq/L (98-107)
[2022-01-01] MEDS ORDERED: SENNOSIDES 8.6MG TABLET GT PRN (11:15)
[2022-01-01 12:00] VITALS: BP 136/68
[2022-01-01] MEDS ORDERED: PROPOFOL 200MG/20ML VIAL IV ONE ×2 (14:24→14:51)
[2022-01-01] MEDS ORDERED: DEXAMETHASONE 4MG/ML 1ML VIAL ONE (14:25)
[2022-01-01] MEDS ORDERED: ONDANSETRON HCL 4MG/2ML INJ ONE (14:25)
[2022-01-01] MEDS ORDERED: MIDAZOLAM HCL 2 MG/2 ML VIAL ONE (14:27)
[2022-01-01 16:00] VITALS: BP 130/80
[2022-01-01] MEDS ORDERED: BISACODYL 10MG SUPP PR NR (17:00)
[2022-01-01 20:00] VITALS: BP 141/83
[2022-01-01] MEDS: ATORVASTATIN CALCIUM 40MG TABLET PO SCH (21:57)
[2022-01-02] VITALS (7 sets, daily range): BP systolic 117–137; BP diastolic 65–81
[2022-01-02] MEDS: CEFEPIME 2,000 MG in DEXT 5% WATER 100 ML IV SCH ×2 (05:31→17:54)
[2022-01-02] MEDS: METRONIDAZOLE 500MG TABLET PO SCH ×3 (05:31→21:35)
[2022-01-02] MEDS: METOCLOPRAMIDE HCL 10MG/2ML VIAL IV SCH ×3 (05:31→17:54)
[2022-01-02] MEDS: BLOOD SUGAR DIAGNOSTIC STRIP TEST SCH ×4 (05:31→21:36)
[2022-01-02] MEDS: SUCRALFATE 1 G/10 ML UDC PO SCH ×4 (05:34→21:35)
[2022-01-02] MEDS: INSULIN LISPRO 100 UNITS/ML SUBCUT SCH ×4 (05:36→21:37)
[2022-01-02 07:22] LABS: BASOPHILS % 0.3 % (0.0-2.0); EOSINOPHILS % 0.7 % (0.0-5.0); HEMATOCRIT. 24.6 % (42.0-52.0); HEMOGLOBIN. 8.3 g/dL (14.0-18.0); LYMPHOCYTES % 10.2 % (20.0-50.0); MEAN CORPUSCULAR HEMOGLOBIN 29.8 pg (28.0-32.0); MEAN CORPUSCULAR VOLUME 87.9 fL (80.0-94.0); MEAN PLATELET VOLUME 6.9 fl (7.4-10.4); MONOCYTES % 11.9 % (2.0-8.0); NEUTROPHILS % 76.9 % (40.0-76.0); PLATELET 521 x1000/uL (130-400); RED CELL DISTRIBUTION WIDTH 14.5 % (11.6-14.6)
[2022-01-02 07:34] LABS: CHLORIDE 108 mEq/L (98-107)
[2022-01-02] MEDS ORDERED: DOCUSATE SODIUM SUGAR FREE 100MG/10ML UDC NG SCH (09:00)
[2022-01-02] MEDS: PANTOPRAZOLE SODIUM 40 MG/VIAL IV SCH ×2 (09:26→21:35)
[2022-01-02] MEDS: RISPERIDONE 0.5MG TABLET PO SCH ×2 (09:26→17:54)
[2022-01-02] MEDS: AMLODIPINE 10MG TABLET PO SCH (09:26)
[2022-01-02] MEDS: ASPIRIN 81MG TABLET PO SCH (09:26)
[2022-01-02] MEDS: ENOXAPARIN 100MG/ML SYR SUBCUT SCH ×2 (09:27→21:36)
[2022-01-02] MEDS: DEXT 5%/0.45% NACL 1000ML 1,000 ML IV SCH ×2 (09:28→23:45)
[2022-01-02] MEDS ORDERED: LORAZEPAM 2MG/ML CPJ IV PRN (19:34)
[2022-01-02] MEDS: ATORVASTATIN CALCIUM 40MG TABLET PO SCH (21:35)
[2022-01-03] MEDS: METOCLOPRAMIDE HCL 10MG/2ML VIAL IV SCH
== END 2022-01-03 00:18 | DRG 64 ==
LOC: 8WST 00:20
PROVIDERS: ADMIT Internal Medicine; ATTEND Internal Medicine
PROC: 0DB78ZX Excision of Stomach, Pylorus, Via Natural or Artificial Opening Endoscopic, Diagnostic (ICD-10-PCS; principal; 2022-01-01)
PROC: 0DH63UZ Insertion of Feeding Device into Stomach, Percutaneous Approach (ICD-10-PCS; 2022-01-01)
DX: I63.9 Cerebral infarction, unspecified (principal); A41.9 Sepsis, unspecified organism; G93.41 Metabolic encephalopathy; J18.9 Pneumonia, unspecified organism; J96.01 Acute respiratory failure with hypoxia; K29.71 Gastritis, unspecified, with bleeding; Z20.822 Contact with and (suspected) exposure to COVID-19; E11.9 Type 2 diabetes mellitus without complications; I10 Essential (primary) hypertension; D63.8 Anemia in other chronic diseases classified elsewhere; I51.3 Intracardiac thrombosis, not elsewhere classified; R13.12 Dysphagia, oropharyngeal phase; R32 Unspecified urinary incontinence; D50.9 Iron deficiency anemia, unspecified; Z86.73 Personal history of transient ischemic attack (TIA), and cerebral infarction without residual deficits; Z78.1 Physical restraint status
CPT/HCPCS: 36415; 36600; 70551; 71045; 74018; 76700; 80048; 81003; 82375; 82607; 82728; 82746; 82805; 82962; 83540; 83550; 84145; 85014; 85018; 85025; 85027; 85044; 86850; 86900; 87426; 88305; 92610; 93005; 93312; 93971; 94640; 97162; 97164; 97166; C1893; C9113; J0692; J1100; J1630; J1650; J1815; J2060; J2250; J2405; J2704; J2765; J3010; J7060

== ENCOUNTER 2022-01-07 02:03 | Emergency (ER) | payer MEDICARE, OTHER ==
[~2022-01-07] VITALS: Ht 182.9 cm; Wt 96.0 kg
[2022-01-07] MEDS ORDERED: DIATR MEGLU/DIATRIZOATE SOLN 30ML ONE (04:18)
[2022-01-07 10:58] VITALS: BP 156/90
== END 2022-01-07 11:24 ==
LOC: ER 02:03
DX: Z43.1 Encounter for attention to gastrostomy (principal); I63.9 Cerebral infarction, unspecified; K21.9 Gastro-esophageal reflux disease without esophagitis; I10 Essential (primary) hypertension; I69.391 Dysphagia following cerebral infarction; R13.10 Dysphagia, unspecified
CPT/HCPCS: 74018; 99285; Q9963

== ENCOUNTER 2022-01-09 01:42 | Emergency (ER) | payer MEDICARE ==
[~2022-01-09] VITALS: Ht 182.9 cm; Wt 95.0 kg
[2022-01-09 11:18] VITALS: BP 132/60
== END 2022-01-09 11:24 | disposition home or self-care (01) ==
LOC: ER 01:48
DX: K94.29 Other complications of gastrostomy (principal); E11.9 Type 2 diabetes mellitus without complications; I10 Essential (primary) hypertension; R47.01 Aphasia; K21.9 Gastro-esophageal reflux disease without esophagitis; Y83.3 Surgical operation with formation of external stoma as the cause of abnormal reaction of the patient, or of later complication, without mention of misadventure at the time of the procedure; Y92.128 Other place in nursing home as the place of occurrence of the external cause
CPT/HCPCS: 74018; 99283